=== PATIENT | female | born 1990 | race Caucasian/White ===

== ENCOUNTER 2017-10-17 17:13 | Emergency (ER) | payer SELFPAY | END 2017-10-17 20:25 | disposition left against medical advice (07) | LOC: E/R 17:13 | DX: Z53.21 Procedure and treatment not carried out due to patient leaving prior to being seen by health care provider (principal) ==

== ENCOUNTER 2017-10-31 01:57 | Inpatient (IN) | payer MEDICAID ==
[2017-10-31 04:02] LABS: ADD MAN DIFF? NO
[2017-10-31] MEDS: ONDANSETRON 4 MG INJ IV (04:04)
[2017-10-31] MEDS: morphine 2 MG INJ IV (04:04)
[2017-10-31 04:11] LABS: ABNORMAL IP MESSAGE 1; BASOPHILS % 0.2 % (0.0-2.0); EOSINOPHILS # 0.2 10^3/ul (0.0-0.5); EOSINOPHILS % 1.7 % (0.0-7.0); HEMATOCRIT 36.4 % (37.0-47.0); HEMOGLOBIN 11.6 g/dl (12.0-16.0); LYMPHOCYTES % 38.6 % (15.0-51.0); MEAN CORPUSCULAR HEMOGLOBIN 25.4 pg (29.0-33.0); MEAN CORPUSCULAR HGB CONC 31.9 g/dl (32.0-37.0); MEAN CORPUSCULAR VOLUME 79.8 fl (82.0-101.0); MEAN PLATELET VOLUME 10.3 fl (7.4-10.4); MONOCYTES % 7.9 % (0.0-11.0); NEUTROPHIL # 6.7 10^3/ul (1.6-7.5); NEUTROPHILS % 51.4 % (39.0-77.0); PLATELET COUNT 345 10^3/UL (140-415); RED BLOOD COUNT 4.56 10^6/ul (4.20-5.40)
[2017-10-31 04:14] LABS: POSITIVE DIFF @See below
[2017-10-31 04:17] LABS: URINE BLOOD (Dip) POC 1+ (NEGATIVE); URINE GLUCOSE (Dip) POC Negative (NEGATIVE); URINE KETONES (Dip) POC Negative (NEGATIVE); URINE LEUKOCYTE EST (Dip) POC 1+ (NEGATIVE); URINE NITRITE (Dip) POC Negative (NEGATIVE); URINE TOTAL PROTEIN POC Negative (NEGATIVE)
[2017-10-31 04:17] LABS: URINE PH (Dip) POC 6.5 (5.0-8.5)
[2017-10-31 04:20] LABS: ALANINE AMINOTRANSFERASE 38 IU/L (13-69); ALBUMIN 4.3 g/dl (3.3-4.9); ALBUMIN/GLOBULIN RATIO 1.13; ALKALINE PHOSPHATASE 83 IU/L (42-121); ANION GAP 14 (8-16); ASPARTATE AMINO TRANSFERASE 33 IU/L (15-46); BILIRUBIN,INDIRECT 0.3 mg/dl (0-1.1); BILIRUBIN,TOTAL 0.3 mg/dl (0.2-1.3); BLOOD UREA NITROGEN 12 mg/dl (7-20); CALCIUM 9.5 mg/dl (8.4-10.2); CARBON DIOXIDE 24 mmol/L (21-31); CHLORIDE 106 mmol/L (97-110); CREATININE 0.74 mg/dl (0.44-1.00); GLUCOSE 104 mg/dl (70-220); LIPASE 105 U/L (23-300); POTASSIUM 3.7 mmol/L (3.5-5.1); SODIUM 140 mmol/L (135-144); TOTAL PROTEIN 8.1 g/dl (6.1-8.1)
[2017-10-31] MEDS: PIPER-TAZO 3.375 GM IV (PMX) 100 ML IVPB ×3 (05:34→21:12)
[2017-10-31] MEDS ORDERED: BISACODYL (EC) 5 MG TAB PO (06:30)
[2017-10-31] MEDS ORDERED: morphine 2 MG INJ IV (06:30)
[2017-10-31] MEDS ORDERED: NACL 0.9% 3 ML SYG IV (06:30)
[2017-10-31] MEDS ORDERED: DOCUSATE SODIUM 100 MG CAP PO (06:30)
[2017-10-31] MEDS ORDERED: ACETAMINOPHEN 325 MG TAB PO (06:30)
[2017-10-31] MEDS ORDERED: ONDANSETRON 4 MG INJ IV (06:30)
[2017-10-31] MEDS: SOD CHLORIDE 0.9% 1,000 ML IV ×3 (09:29→21:12)
[2017-10-31] MEDS ORDERED: ALBUTEROL 0.083% (NEB) 2.5 MG/3 ML AMP HHN (10:30)
[2017-10-31] MEDS ORDERED: PIPER-TAZO 3.375 GM IV (PMX) 100 ML IVPB (12:00)
[2017-11-01] MEDS: SOD CHLORIDE 0.9% 1,000 ML IV ×2 (02:01→12:01)
[2017-11-01 05:12] LABS: ADD MAN DIFF? NO
[2017-11-01 05:19] LABS: BASOPHILS % 0.4 % (0.0-2.0); EOSINOPHILS # 0.2 10^3/ul (0.0-0.5); HEMATOCRIT 34.2 % (37.0-47.0); HEMOGLOBIN 10.9 g/dl (12.0-16.0); LYMPHOCYTES # 2.6 10^3/ul (0.8-2.9); MEAN CORPUSCULAR HEMOGLOBIN 25.3 pg (29.0-33.0); MEAN CORPUSCULAR HGB CONC 31.9 g/dl (32.0-37.0); MEAN CORPUSCULAR VOLUME 79.4 fl (82.0-101.0); MEAN PLATELET VOLUME 10.6 fl (7.4-10.4); MONOCYTE # 0.6 10^3/ul (0.3-0.9); MONOCYTES % 7.2 % (0.0-11.0); NEUTROPHIL # 4.3 10^3/ul (1.6-7.5); NEUTROPHILS % 56.1 % (39.0-77.0); PLATELET COUNT 311 10^3/UL (140-415); RED BLOOD COUNT 4.31 10^6/ul (4.20-5.40); RED CELL DISTRIBUTION WIDTH 13.1 % (11.5-14.5)
[2017-11-01 05:19] LABS: WHITE BLOOD COUNT 7.7 10^3/ul (4.8-10.8)
[2017-11-01 05:40] LABS: ALANINE AMINOTRANSFERASE 46 IU/L (13-69); ALBUMIN 3.6 g/dl (3.3-4.9); ALBUMIN/GLOBULIN RATIO 1.05; ALKALINE PHOSPHATASE 73 IU/L (42-121); ANION GAP 13 (8-16); ASPARTATE AMINO TRANSFERASE 34 IU/L (15-46); BILIRUBIN,INDIRECT 0.6 mg/dl (0-1.1); BILIRUBIN,TOTAL 0.6 mg/dl (0.2-1.3); BLOOD UREA NITROGEN 10 mg/dl (7-20); CALCIUM 8.7 mg/dl (8.4-10.2); CARBON DIOXIDE 23 mmol/L (21-31); CHLORIDE 109 mmol/L (97-110); CHOL/HDL RATIO 3.2 RATIO; CHOLESTEROL 102 mg/dl (100-200); CREATININE 0.68 mg/dl (0.44-1.00); GLUCOSE 82 mg/dl (70-220); HDL CHOLESTEROL 31 mg/dl (33-83); IRON 143 ug/dl (35-150); LDL CHOLESTEROL,CALCULATED 59 mg/dl; POTASSIUM 3.5 mmol/L (3.5-5.1); SODIUM 141 mmol/L (135-144); TRIGLYCERIDES 61 mg/dl (0-149)
[2017-11-01 05:42] LABS: PHOSPHORUS 3.3 mg/dl (2.5-4.9)
[2017-11-01] MEDS: PIPER-TAZO 3.375 GM IV (PMX) 100 ML IVPB ×2 (05:44→14:28)
[2017-11-01 05:49] LABS: % IRON SATURATION 39 % SAT (22-52); TOTAL IRON BINDING CAPACITY 371 ug/dl (241-421)
[2017-11-01 05:56] LABS: FREE T4 (FREE THYROXINE) 1.07 ng/dl (0.79-2.35)
[2017-11-01 06:37] LABS: HEMOGLOBIN A1C 5.7 % (0-5.9)
[2017-11-01 07:07] LABS: FERRITIN 15.8 ng/ml (6.2-137.0)
== END 2017-11-01 18:30 | disposition home or self-care (01) | DRG 446 ==
LOC: E/R 01:57 → MS1 05:48
DX: K80.20 Calculus of gallbladder without cholecystitis without obstruction (principal); E66.01 Morbid (severe) obesity due to excess calories; J45.909 Unspecified asthma, uncomplicated; Z68.38 Body mass index [BMI] 38.0-38.9, adult
CPT/HCPCS: 36415; 76705; 78226; 80053; 80061; 81003; 81025; 82728; 83036; 83540; 83690; 83735; 84100; 84439; 84443; 85025; 87086; 96374; 99285-25

== ENCOUNTER 2018-06-08 14:46 | Emergency (ER) | payer MEDICAID | END 2018-06-08 16:05 | disposition home or self-care (01) | LOC: FTE 14:46 | DX: M54.9 Dorsalgia, unspecified (principal); M25.561 Pain in right knee; M25.562 Pain in left knee; J45.909 Unspecified asthma, uncomplicated; M79.601 Pain in right arm; M25.551 Pain in right hip; M25.552 Pain in left hip | CPT/HCPCS: 99283; Z7502 ==